=== PATIENT | female | born 1960 | race Caucasian/White ===

== ENCOUNTER 2024-07-28 10:23 | Emergency (ER) | payer OTHER ==
[~2024-07-28] VITALS: Ht 162.6 cm; Wt 71.7 kg
[2024-07-28] VITALS (8 sets, daily range): BP systolic 149–179; BP diastolic 84–121
[2024-07-28] MEDS ORDERED: traMADol HCL 50 MG/TAB PO ONE (11:05)
[2024-07-28] MEDS ORDERED: MEDDOSEPAK PO (12:14)
[2024-07-28] MEDS ORDERED: TRAMADOL HYDROC50 M1 PO (12:14)
[2024-07-28] MEDS ORDERED: NABUMETONE750 MG PO (12:14)
== END 2024-07-28 12:38 | disposition home or self-care (01) | DRG 563 ==
LOC: ED 10:23
DX: S63.501A Unspecified sprain of right wrist, initial encounter (principal); M77.8 Other enthesopathies, not elsewhere classified; G62.9 Polyneuropathy, unspecified; X58.XXXA Exposure to other specified factors, initial encounter; Y93.79 Activity, other specified sports and athletics
CPT/HCPCS: J1100